=== PATIENT | male | born 1945 | race Caucasian/White ===

== ENCOUNTER → 2017-01-11 | Outpatient (CLI) | payer MEDICARE, OTHER ==
[~2017-01-11] MED LIST: ALIS300T PO; AMLO1TAB95 PO; ASCO500T2 PO; ASPI-482 PO; BUPIVACAINE MPF 0.25% 10 ML VIAL. ONE; CRESTOR5 MG PO; FLUT1DIS5 IH; IOHEXOL 180 MG/ML 10 ML VIAL. ONE; METF10002 PO; MULT-658 PO; OMEG1CAP6 PO; PREG75CA PO; SITA50TA PO; methylPREDNISolone ACETATE 80 MG/ML VIAL. ONE
--- NOTE | 2017-01-12 02:36 | PAIN ---
DATE OF SERVICE: 01/11/2017 PROGRESS NOTE FOR PAIN CLINIC DIAGNOSES: 1. Lumbar radiculopathy with lumbar spinal stenosis and post-lumbar laminectomy syndrome. 2. Right hip joint pain with primary osteoarthritis, right hip joint. HISTORY OF PRESENT ILLNESS: The patient is a 71-year-old male who returns for followup status post caudal epidural steroid injection x 1 in 07/2016. The patient did very well with this, approximately 65% improvement with the injection. Initially, he had about 80% improvement. It has become a little more noticeable, but his main complaint is right hip, which has significant pain. He has had workup with his orthopedist showing some significant right hip degenerative joint disease in his right hip and he has had his left hip replaced. His physician is recommending that he have the right one replaced as well, but he is wanting to try some more conservative measures first. He has significant pain that he reports with walking, standing, putting any weight on the leg at all, especially stepping up on a stair or curb with all of his weight on his right foot and leg with a 9 on a scale of 10, otherwise, it is about a 5 on a scale 10. Again, the patient's low back is doing much better. He has some aching in the mid back, but it is very tolerable. The patient reports the pain in his hip is aching, sharp, tingling, constant, unbearable at times, worse as the day goes on, worse with activity, better with sitting and resting and does not awaken him from sleep at night, it is much better when lying down. The patient reports some radiation into his groin as well as the anterior thigh on the right side as well as lateral thigh on the right. PHYSICAL EXAMINATION: VITAL SIGNS: Today, the patient's blood pressure is 143/91, pulse is 79, respirations 18, temperature 98.1 degrees Fahrenheit. Height is 5 feet 3 inches. Weight is 195 pounds. GENERAL: The patient is awake, alert, oriented, appropriate, very pleasant demeanor. HEENT: Shows normocephalic, atraumatic. Extraocular movements are intact and symmetrical. Oral cavity: Mucous membranes are moist and pink. Dentition is intact. NECK: Shows anterior throat is supple without palpable lymphadenopathy noted. Swallow reflex is symmetrical. CHEST: Shows normal on inspection. Breath sounds are clear to auscultation bilaterally. HEART: Shows S1 and S2 clear. ABDOMEN: Obese, soft, nontender, nondistended. No palpable organomegaly. No rebound or guarding demonstrated. BACK: Shows spine grossly in the midline. Slight exaggeration of thoracic kyphosis and mild flattening of lumbar lordotic curvature. The patient's well-healed surgical scar is again appreciated in the lumbar distribution. The patient's lower extremities showed deep tendon reflexes of 1+ in the patellar and tendo calcaneus tendons are equal. Motor exam is strong with 5/5 dorsiflexion, extension, quadriceps and hamstring flexion. The patient shows some significant tenderness with external rotation of the right hip and posterior displacement with positive Tex's sign with groin pain reproduced and into the medial thigh as well. This is relieved with the abduction of the hip and left side is negative. PLAN: Options were discussed with the patient and the patient's old chart was reviewed and his current medication regimen updated. Current review of systems updated today as well. We will proceed with a right intra-articular hip joint injection with fluoroscopic guidance. Risks were discussed including but not limited to bleeding, infection, possibility of epidural hematoma, subsequent neurologic compromise, dural puncture, headaches, spinal cord and/or nerve damage, spread of local anesthetic and numbness as well as poor results regarding pain control and side effects of steroid medication and exposure to fluoroscopy. The patient understands and wishes to proceed. The patient will return to the clinic in approximately 2 weeks for followup. He was counseled on return appointment, activity level and side effects to be aware of. DIAGNOSES: Primary osteoarthritis, right hip joint with right hip pain. PROCEDURE: Right intra-articular hip joint injection using fluoroscopic guidance under sterile prep and drape using local anesthetic. MEDICATIONS INJECTED: An 80 mg of Depo-Medrol plus 3 mL of 0.25% bupivacaine and 3 mL of Isovue for contrast. CONDITION AT DISCHARGE: Stable. The patient tolerated procedure well, had no complications. SEDRICK CHANEY MD DR: GALINA/claudine JOB#: [id number] / [id number]
== END | disposition home or self-care (01) ==
LOC: PNCL 08:35
PROVIDERS: ATTEND Anesthesiology
DX: M16.11 Unilateral primary osteoarthritis, right hip (principal); M48.06 Spinal stenosis, lumbar region; M54.16 Radiculopathy, lumbar region
CPT/HCPCS: 20610; 77002; J1040; J3490

== ENCOUNTER → 2017-07-06 | Outpatient (CLI) | payer MEDICARE, OTHER ==
[~2017-07-06] MED LIST changes: -BUPIVACAINE MPF 0.25% 10 ML VIAL. ONE; -IOHEXOL 180 MG/ML 10 ML VIAL. ONE; +METF-620 PO; -METF10002 PO; -methylPREDNISolone ACETATE 80 MG/ML VIAL. ONE
--- NOTE | 2017-07-06 16:46 | KCIC ---
MR of the right wrist Indication: Pain and swelling after a fall in April 2017. Technique: Standard multiplanar sequences are obtained. Findings: Moderate motion degradation. Triangular fibrocartilage: Degenerative signal throughout. There appears to be some partial tearing at the foveal and ulnar styloid attachment. Negative ulnar variance. Extensor carpi ulnaris tendon: Medial subluxation. No evidence of tear. Other extensor compartments: Intact Flexor tendons: Intact Median nerve: Unremarkable Scapholunate ligament: Poorly visualized due to the motion. No obvious rupture but difficult to exclude a tear. Lunotriquetral ligament: No evidence of a tear. Fluid: No significant effusion. Joints: Generalized primary osteoarthritis. Bones: Intraosseous cyst at the distal ulna. No aggressive bone destruction. No acute fracture. Soft tissues: Unremarkable There is some dorsal tilt of the lunate bone. Impression: 1. Primary osteoarthritis. 2. 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 Medial subluxation of the extensor carpi ulnaris tendon. Electronically signed by: Kyle Berumen MD (07/06/2017 4:42 PM) [facility]
== END | disposition home or self-care (01) ==
LOC: KCIC MRI 13:22
PROVIDERS: ATTEND Physician Assistant Medical
DX: S63.001A Unspecified subluxation of right wrist and hand, initial encounter (principal); M19.031 Primary osteoarthritis, right wrist; X58.XXXA Exposure to other specified factors, initial encounter; Y93.89 Activity, other specified; Y92.89 Other specified places as the place of occurrence of the external cause; Y99.8 Other external cause status
CPT/HCPCS: 73221

== ENCOUNTER → 2018-06-15 | Outpatient (CLI) | payer MEDICARE, OTHER ==
[~2018-06-15] MED LIST changes: +AMLO1TAB97 PO; +CHOL10003 PO; +HYDR12.53 PO; +HYDR26CR TP; +IOHEXOL 180 MG/ML 10 ML VIAL. ONE; +LIDOCAINE 2% PF 2ML VIAL. ONE; +LORA10TA3 PO; -METF-620 PO; +METF10007 PO; +PANT20TA2 PO; +SITA100T PO; +methylPREDNISolone ACETATE 40 MG/ML VIAL. ONE; +methylPREDNISolone ACETATE 80 MG/ML VIAL. ONE
--- NOTE | 2018-06-15 12:36 | PAIN ---
DATE OF SERVICE: 06/15/2018 PROGRESS NOTE FOR PAIN CLINIC DIAGNOSES: Lumbar radiculopathy with lumbar spinal stenosis and post-lumbar laminectomy syndrome. HISTORY OF PRESENT ILLNESS: The patient is a 73-year-old male who returns for followup status post previous caudal epidural steroid injections, last seen in 2017. The patient did very well with this about an 80% improvement initially in his low back pain. The patient reports the pain has been returning. He recently had a left hip replacement and after rehab, he noticed that his back was beginning to bother him more. It has been going on for about 2-3 months across the low back and the bilateral lower extremities, mostly in the posterior gluteus, posterior thighs and worse with standing and walking and much better with sitting or lying down. It does not awaken him from sleep very often. The patient reports he was increasing his activity with greater ease and comfort and once his hip was rehabbed, he noticed that the pain was becoming more noticeable in his low back. The patient reports it is 8 on a scale of 10 at its worst, 7 on average, 0 at its least and is a 7 today. The patient reports it is aching, sharp, constant, radiating into the posterior legs as noted without loss of motor function. The patient is using a walker as he has been since his hip was replaced but no loss of motor function of the lower extremities. PHYSICAL EXAMINATION: VITAL SIGNS: Today, the patient's blood pressure 145/79, pulse 80, respirations 16, temperature 98.0 degrees Fahrenheit, height is 61 inches and weight is 213 pounds. GENERAL: The patient is awake, alert, oriented, appropriate and very pleasant demeanor. The patient is accompanied by his spouse. HEENT: Head shows normocephalic and atraumatic. Extraocular movements are intact and symmetrical. Oral cavity, mucous membranes are moist and pink. Dentition is intact. NECK: Shows anterior throat supple without palpable lymphadenopathy noted. Swallow reflex symmetrical. CHEST: Shows normal on inspection. Breath sounds are clear to auscultation bilaterally. HEART: Shows S1 and S2 clear. No murmurs auscultated. ABDOMEN: Soft, nontender and nondistended. No palpable organomegaly is noted. No rebound or guarding demonstrated. BACK: Shows spine grossly in the midline. Normal appearing thoracic kyphosis and lumbar lordotic curvature. Lumbar paraspinous muscle shows symmetrical on inspection. On palpation shows some moderate tenderness but only diffusely in the low lumbar distribution with some flattening of lumbar lordotic curvature. Well healed surgical scarring is again noted. No radiation of pain and no tenderness over the sacrum or sacroiliac regions over the spinous processes. The patient has good rotational motion of the lumbar spine, both laterally greater than 10 degrees, right and left as well as extension and forward flexion without significant pain reported. EXTREMITIES: Lower extremities show deep tendon reflexes at 1+ in the patellar and tendo-calcaneus tendons. Motor exam is strong with 5/5 dorsiflexion, extension, quadriceps and hamstring flexion and equal. Peripheral pulses are 1+ posterior tibia. No peripheral edema is noted bilaterally. Straight leg raise are negative bilaterally as well as Gaenslen's and Tex's maneuvers. The patient has a well-healed surgical scar in the lateral aspect of the left thigh as well. Options were discussed with the patient. The patient's old chart was reviewed as well as his current medication regimen updated. Current review of systems updated today as well. We will proceed with a caudal approach epidural steroid injection today with fluoroscopic guidance. Risks were again discussed including, but not limited to bleeding, infection, possibility of epidural hematoma, subsequent neurologic compromise, dural puncture, headaches, spinal cord and/or nerve damage, side effects of steroid medication and poor results regarding pain control. The patient understands and wished to proceed. The patient will return to the clinic in approximately 2 weeks for followup, was counseled as to return appointment, activity level and side effects to be aware of. DIAGNOSIS: Lumbar radiculopathy with lumbar spinal stenosis and post-lumbar laminectomy syndrome. PROCEDURE: Caudal approach epidural steroid injection with fluoroscopic guidance under sterile prep and drape using local anesthetic. MEDICATION INJECTED: A total of 120 mg Depo-Medrol plus 10 mL of preservative-free normal saline and 2 mL of Isovue for contrast. CONDITION AT DISCHARGE: Stable. The patient tolerated the procedure well and had no complications. SEDRICK CHANEY MD DR: GALINA/claudine JOB#: [id number] / [id number]
== END | disposition home or self-care (01) ==
LOC: PNCL 09:02
PROVIDERS: ATTEND Anesthesiology
DX: M48.061 Spinal stenosis, lumbar region without neurogenic claudication (principal); M54.16 Radiculopathy, lumbar region; M96.1 Postlaminectomy syndrome, not elsewhere classified
CPT/HCPCS: 62323; J1030; J1040; J2001; Q9965

== ENCOUNTER → 2018-06-29 | Outpatient (CLI) | payer MEDICARE, OTHER ==
[~2018-06-29] MED LIST changes: -IOHEXOL 180 MG/ML 10 ML VIAL. ONE; -LIDOCAINE 2% PF 2ML VIAL. ONE; -methylPREDNISolone ACETATE 40 MG/ML VIAL. ONE; -methylPREDNISolone ACETATE 80 MG/ML VIAL. ONE
--- NOTE | 2018-06-29 18:35 | PAIN ---
DATE OF SERVICE: 06/29/2018 DIAGNOSES: Lumbar radiculopathy with lumbar spinal stenosis, post-lumbar laminectomy syndrome. HISTORY OF PRESENT ILLNESS: The patient is a 73-year-old male, returns for followup status post caudal epidural steroid injection x 1. The patient reports 100% improvement. The patient has no pain in his low back or his leg. The patient reports he is still working through physical therapy, has a recent right hip joint replacement, but is doing well with this and feels that is progressing. The patient reports his leg is getting stronger. The patient reports his pain is completely gone, is a 0 in all categories, 0 at its worst, 0 average, 0 at its least, and 0 on a scale of 10 today. The patient reports no new motor or sensory deficits. No new bowel or bladder incontinence or other complaints. He is very pleased with his progress, sleeping well at night, increasing his activity, is moving about, getting around better, walking greater distances, doing household activities with greater ease and comfort and again sleeping well. PHYSICAL EXAMINATION: VITAL SIGNS: The patient's blood pressure 126/82, pulse 81, respirations 16, temperature is 98.2 degrees Fahrenheit, 61 inches, weight is 207 pounds. GENERAL: The patient is awake, alert, oriented, appropriate, very pleasant demeanor. HEENT: Shows normocephalic, atraumatic. Extraocular movements are intact and symmetrical. Oral cavity: Mucous membranes moist and pink. Dentition is intact. NECK: Shows anterior throat supple without palpable lymphadenopathy noted. Swallow reflex is symmetrical. CHEST: Shows normal on inspection. Breath sounds clear to auscultation bilaterally. HEART: Shows S1, S2 clear. No murmurs auscultated. ABDOMEN: Obese, soft, nontender, nondistended. No palpable organomegaly is noted. No rebound or guarding demonstrated. BACK: Shows spine grossly in the midline. Normal appearing thoracic kyphosis, slightly increased, and some flattening of lumbar lordotic curvature with well-healed surgical scar noted. Lumbar paraspinous muscle shows symmetrical on inspection, some very mild tenderness in the middle and lower distribution of paraspinous muscles, but without radiation. The patient has good rotational motion of lumbar spine without difficulty. EXTREMITIES: Lower extremities show deep tendon reflexes at 1+ in the patellar and tendo calcaneus tendons. Motor exam is strong with 5/5 dorsiflexion and extension. Peripheral pulses are 1+ posterior tibia. No peripheral edema is noted bilaterally. Options were discussed with the patient. The patient's old chart was reviewed as is his current medication regimen updated. Current review of systems is updated today as well. We will proceed with holding any further injections at this time as the patient is doing quite well. He is to increase activity as tolerated and maintain his physical therapy with his right hip. The patient will follow up at this time on as needed basis. SEDRICK CHANEY MD DR: GALINA/claudine JOB#: [id number] / [id number]
== END | disposition home or self-care (01) ==
LOC: PNCL 08:13
PROVIDERS: ATTEND Anesthesiology
DX: M48.061 Spinal stenosis, lumbar region without neurogenic claudication (principal); M54.16 Radiculopathy, lumbar region; M96.1 Postlaminectomy syndrome, not elsewhere classified; Z96.641 Presence of right artificial hip joint
CPT/HCPCS: G0463

== ENCOUNTER → 2019-03-08 | Outpatient (CLI) | payer MEDICARE, OTHER ==
[~2019-03-08] MED LIST changes: +HYDR-2145 PO; -HYDR12.53 PO; +HYDR12.575 PO; +IOHEXOL 180 MG/ML 10 ML VIAL. ONE; +methylPREDNISolone ACETATE 40 MG/ML VIAL. ONE; +methylPREDNISolone ACETATE 80 MG/ML VIAL. ONE
--- NOTE | 2019-03-08 11:23 | PAIN ---
DATE OF SERVICE: 03/08/2019 PROGRESS NOTE FOR PAIN CLINIC DIAGNOSES: Lumbar radiculopathy with lumbar spinal stenosis and lumbar post-laminectomy syndrome. HISTORY OF PRESENT ILLNESS: The patient is a 73-year-old male who returns for followup status post caudal epidural steroid injection x 1 on . The patient did very well with 100% improved for about 6 months. The patient reports pains are returning now over the past few weeks, increasing his walking or standing in the low back and radiating to bilateral posterior gluteus, posterior thighs, posterior calves mostly across the low back. The patient reports it is an 8 on a scale of 10 at its worst over the past week, 5 on average and 3 at its least and is a 5 today. The patient reports it is sharp and aching, sometimes dull, stabbing but becoming more constant, more radiating, worse with walking, standing, changing position initially with increased his walking greater distances, household activities performed with much greater ease and comfort and sleeping well, still sleeps well, does not awaken him from sleep and traveling with much greater ease and comfort as well until the last month or so. The patient reports no new motor or sensory deficits and no new bowel or bladder incontinence or other complaints. The patient is using a walker to ambulate now as he feels somewhat unstable as the pain is returning. PHYSICAL EXAMINATION: VITAL SIGNS: The patient's blood pressure 126/75, pulse 73, respirations 16 and temperature 98.1 degrees Fahrenheit. Height 6 feet 1 inch and weight is 213 pounds. GENERAL: The patient is awake, alert, oriented, appropriate and very pleasant demeanor. HEENT: Head shows normocephalic and atraumatic. Extraocular movements intact and symmetrical. Oral cavity: Mucous membranes are moist and pink. Dentition is intact. NECK: Shows anterior throat supple without palpable lymphadenopathy noted. Swallow reflex symmetrical. CHEST: Shows normal on inspection. Breath sounds are clear to auscultation bilaterally. HEART: Shows S1 and S2 clear. No murmurs auscultated. ABDOMEN: Obese, soft, nontender and nondistended. No palpable organomegaly is noted. No rebound or guarding demonstrated. BACK: Shows spine grossly in the midline. Normal appearing thoracic kyphosis and lumbar lordotic curvature. Lumbar paraspinous muscle shows symmetrical on inspection. On palpation shows some moderate tenderness diffusely but only diffusely without radiation. EXTREMITIES: The patient's lower extremities show deep tendon reflexes at 1+ in the patellar and tendo-calcaneus tendons are equal. Motor exam is strong with 5/5 dorsiflexion, extension, quadriceps and hamstring flexion symmetrical. Peripheral pulses are 1+. No peripheral edema is noted bilaterally. Options were discussed with the patient. The patient's old chart was reviewed as well as his current medication regimen updated. Current review of systems is updated today as well. We will proceed with a caudal epidural steroid injection today with fluoroscopic guidance. Risks were again discussed including, but not limited to bleeding, infection, possibility of epidural hematoma, subsequent neurologic compromise, dural puncture, headaches, spinal cord and/or nerve damage, side effects of steroid medication and poor results regarding pain control. The patient understands and wished to proceed. The patient will return to the clinic in approximately 2 weeks for followup, was counseled as to return appointment, activity level and side effects to be aware of. DIAGNOSIS: Lumbar radiculopathy with lumbar spinal stenosis with lumbar post-laminectomy syndrome. PROCEDURE: Lumbar epidural steroid injection, caudal approach using C-arm fluoroscopic guidance under sterile prep and drape using local anesthetic. MEDICATION INJECTED: A total of 120 mg Depo-Medrol plus 10 mL of preservative-free normal saline and 2 mL of contrast. CONDITION AT DISCHARGE: Stable. The patient tolerated the procedure well and had no complications. SEDRICK CHANEY MD DR: GALINA/claudine JOB#: [id number] / [id number]
== END ==
LOC: PNCL 08:06
PROVIDERS: ATTEND Anesthesiology
DX: M54.16 Radiculopathy, lumbar region (principal); M48.061 Spinal stenosis, lumbar region without neurogenic claudication; M96.1 Postlaminectomy syndrome, not elsewhere classified
CPT/HCPCS: 62323; J1030; J1040; Q9965

== ENCOUNTER → 2019-03-26 | Outpatient (CLI) | payer MEDICARE, OTHER ==
[~2019-03-26] MED LIST changes: -IOHEXOL 180 MG/ML 10 ML VIAL. ONE; -methylPREDNISolone ACETATE 40 MG/ML VIAL. ONE; -methylPREDNISolone ACETATE 80 MG/ML VIAL. ONE
--- NOTE | 2019-03-26 11:15 | PAIN ---
DATE OF SERVICE: 03/26/2019 PROGRESS NOTE FOR PAIN CLINIC DIAGNOSES: Lumbar radiculopathy with lumbar spinal stenosis and lumbar post-laminectomy syndrome. HISTORY OF PRESENT ILLNESS: The patient is a 73-year-old male who returns for followup status post caudal epidural steroid injection x 1 on 03/08/2019. The patient did very well, reports about 100% improvement at this time in his low back, but he is still off balance a bit when he is walking, but his pain has completely gone. The patient reports a 0 on a scale of 10 in all categories, worst, average and at its least over the past week and is feeling quite a bit better. The patient reports he has been increasing his activity with greater ease and comfort, walking better with less pain and able to do household activities, driving with greater ease and comfort as well. The patient reports no new motor or sensory deficits, no new bowel or bladder incontinence. The patient is still using his walker as he is off balance but otherwise no pain. The patient reports no new changes or other complaints. PHYSICAL EXAMINATION: VITAL SIGNS: The patient's blood pressure is 148/81, pulse is 74, respirations 18, temperature 98.2 degrees Fahrenheit, height 61 inches, weight is 211 pounds. GENERAL: The patient is awake, alert, oriented, appropriate, very pleasant demeanor. HEENT: Head shows normocephalic, atraumatic. Extraocular movements are intact and symmetrical. Oral cavity: Mucous membranes are moist and pink. Dentition is intact. NECK: Shows anterior throat supple without palpable lymphadenopathy noted. Swallow reflex symmetrical. CHEST: Shows normal with inspection. Breath sounds are clear to auscultation bilaterally. HEART: Shows S1, S2 clear. No murmurs auscultated. ABDOMEN: Obese, soft, nontender, nondistended. No palpable organomegaly is noted. BACK: Shows spine grossly in the midline. Slight exaggeration of thoracic kyphosis, some minor flattening of lumbar lordotic curvature. Well-healed surgical scar noted in the lumbar distribution. Lumbar paraspinous muscle shows symmetrical on inspection, on palpation shows some moderate tenderness diffusely, but only diffusely bilaterally without specific radiation. The patient has good rotational motion as well as extension and flexion. EXTREMITIES: Lower extremities show deep tendon reflexes 1+ in the patellar tendons and tendo-calcaneus tendons. Motor exam is strong with 5/5 dorsiflexion, extension, quadriceps and hamstring flexion symmetrical. Peripheral pulses are 1+ posterior tibial. No peripheral edema is noted bilaterally. ASSESSMENT AND PLAN: Options were discussed with the patient. The patient's old chart was reviewed as his current medication regimen and updated and current review of systems updated today as well. We will hold on any further injections as the patient is doing quite a bit better. The patient was encouraged to increase his activity and would maintain use of his walker when he feels he is off balance. The patient will follow up at this time on an as needed basis. SEDRICK CHANEY MD DR: GALINA/claudine JOB#: [id number] / [id number]
== END | disposition home or self-care (01) ==
LOC: PNCL 09:02
PROVIDERS: ATTEND Anesthesiology
DX: M48.061 Spinal stenosis, lumbar region without neurogenic claudication (principal); M54.16 Radiculopathy, lumbar region; M96.1 Postlaminectomy syndrome, not elsewhere classified
CPT/HCPCS: G0463

== ENCOUNTER → 2021-06-24 | Outpatient (CLI) | payer MEDICARE, OTHER ==
[~2021-06-24] MED LIST changes: -ASCO500T2 PO; +ASCO500T4 PO; -HYDR26CR TP; +HYDR26CR2 TP; +PREG-9 PO; -PREG75CA PO
--- NOTE | 2021-06-24 16:11 | KCIC ---
Examination: MRI lumbar spine without IV contrast. History: Low back pain frequent falls from back and leg pain. Technique: Multiplanar, multi sequential MR imaging was performed of the lumbar spine. Comparison: None Findings: Chronic appearing mild central compression deformity of L4 and L5 vertebral bodies. Normal vertebral body alignment. No fracture. Schmorl's nodes in the superior endplate of L3 vertebral body. Conus ter minates at the normal location. No evidence of nerve root clumping. 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 Specific level as follow: T11-T12: Mild diffuse disc bulge with ligamentum flavum hypertrophy and facet arthropathy. Mild canal stenosis. Moderate bilateral neuroforaminal narrowing. T12-L1: Diffuse disc bulge with bilateral facet arthropathy and ligamentum flavum hypertrophy, causin g mild to moderate canal stenosis and bilateral neuroforaminal narrowing. L1-L2: Diffuse disc bulge with bilateral facet arthropathy and ligamentum flavum hypertrophy, causing moderate canal stenosis with moderate to severe left neuroforaminal narrowing. L2-L3: Diffuse disc bulge with bilateral facet arthropathy and ligamentum flavum hypertrophy, causing significant canal stenosis with severe bilateral lateral recess narrowing which encroaching transiti ng nerve roots. Severe left and moderate right neuroforaminal narrowing, encroaching bilateral exitin g nerve roots. L3-4: Diffuse disc bulge with bilateral facet arthropathy and ligamentum flavum thickening, causing s evere canal stenosis with moderate bilateral neuroforaminal narrowing, abutting exiting nerve roots. L4-5: Diffuse disc bulge with bilateral facet arthropathy, causing moderate canal stenosis with moder ate to severe bilateral neuroforaminal narrowing. L5-S1: Mild diffuse disc bulge with bilateral facet arthropathy, causing [id number] bilateral n euroforaminal narrowing. No significant canal stenosis. IMPRESSION: Severe multilevel degenerative changes as described above, worst at L2-3 and L3-4 with severe canal s tenosis and significant bilateral neuroforaminal narrowing. Electronically signed by: Jennifer Troy MD (06/24/2021 4:09 PM) [facility]
== END ==
LOC: KCIC MRI 12:53
PROVIDERS: ATTEND Physician Assistant Medical
DX: M47.816 Spondylosis without myelopathy or radiculopathy, lumbar region (principal); M48.061 Spinal stenosis, lumbar region without neurogenic claudication
CPT/HCPCS: 72148

== ENCOUNTER → 2021-07-17 | Outpatient (CLI) | payer MEDICARE, OTHER ==
[~2021-07-17] MED LIST changes: +IOHEXOL 180 MG/ML 10 ML VIAL. ONE; +methylPREDNISolone ACETATE 40 MG/ML VIAL. ONE; +methylPREDNISolone ACETATE 80 MG/ML VIAL. ONE
--- NOTE | 2021-07-17 11:56 | PDOC ---
Progress Note - Pain Clinic Date of Service: DOS: DATE: 07/17/21 TIME: 11:53 Diagnosis: Dx: Lumbar radiculopathy with lumbar spinal stenosis lumbar postlaminectomy syndrome Right hip joint pain with osteoarthritis History or Present Illness: HPI: 76-year-old male presents with history of pain low back and bilateral lower extremities posterior gluteus posterior thighs posterior calves mostly in the low back itself patient reports is an 8 on scale 10 is worse over the past week 5 hours previously and is a 3 today. Patient did very well was last seen March 2019 after caudal approach epidural steroid injection with a Cameron percent improvement for about 6 months or more patient reports he has been putting off getting back and he did have a new MRI scan which we discussed with him today showing severe multilevel degenerative changes worst at L2-3 L3-4 with severe canal stenosis and subsequent bilateral neuroforaminal narrowing. Patient reports still significant pain the low back and legs worse with walking standing better with sitting or laying down generally does not awaken her from sleep at night patient reports that previously he is done very well with after his last injection with distance walking household activities work activities travel with greater ease and comfort but now is becoming much more difficult to perform his daily activities. Patient reports no loss of motor function but significant pa in in the lower extremities and some weakness and fatigue in the lower extremities with ambulation. Patient reports no loss of bowel or bladder continence. Physical Exam: VS: Blood pressure is 130/83 pulse 78 temperature 98.4 F height is 5 feet 3 inches weight is 203 pounds. PE: PHYSICAL EXAMINATION: GENERAL: The patient is awake, alert, oriented, appropriate, very pleasant in demeanor HEENT: Shows normocephalic, atraumatic. Extraocular movements are intact and symmetrical. Oral cavity: Mucous membranes moist and pink. NECK: Shows anterior throat supple without palpable lymphadenopathy noted. Swallow reflex symmetrical. CHEST: Shows normal on inspection. Breath sounds are clear bilaterally, distant no rales rhonchi wheezes also. HEART: Shows S1, S2 clear. No murmurs auscultated. ABDOMEN: Soft, nontender, nondistended, obese. No palpable organomegaly is noted. BACK: Shows spine grossly in the midline. Normal-appearing cervical lordotic curvature. There is slightly thoracic kyphosis, some flattening of the lumbar lordotic curvature, with well-healed midline surgical scarring noted. Lumbar paraspinous muscles show symmetrical on inspection, on palpation shows some moderate tenderness diffusely throughout the upper, middle and lower distribution of the paraspinous muscles, but without specific trigger points, without radiation of pain. The patient has good rotational motion of the lumbar spine, both laterally as well as extension and flexion without significant difficulty. EXTREMITIES: Lower extremities show deep tendon reflexes 1+ in the patellar and tendo calcaneus tendons. Motor exam is 5 on a scale of 5 with right dorsiflexion, extension, quadriceps and hamstring flexion and 5/5 on the left. Peripheral pulses are 1+ posterior tibial. No peripheral edema is noted bilaterally. Lower extremities are warm and dry. SKIN: Shows warm and dry, good turgor. No edema. No sores, rashes or bruising throughout. Procedure: Procedure: Options were discussed with patient. Patient chart reviews his current medication regimen updated current review of systems updated today as well. We will proceed with a caudal approach epidural steroid injection today with fluoroscopic guidance. Risks were discussed including but not limited to: Bleeding, infection, possibility of epidural hematoma and subsequent neurological compromise, dural puncture, headaches, spinal cord and/or nerve damage, side effects of steroid medication, and poor results regarding pain control. Patient understands and wished to proceed. She will return to clinic in approximately 2 weeks for follow-up, was counseled return appointment, activity level, and side effect to be aware of. Medication Injected: Med Injected: Procedure is lumbar epidural steroid injection under local anesthetic using sterile prep and drape at the caudal level using C-arm fluoroscopic guidance in both AP and lateral views medications injected is 120 mg Depo-Medrol +10mL preservative-free normal saline and 2 mL contrast- condition at discharge is stable patient tolerated procedure well had no complications. Condition at Discharge: Condition at Discharge: Condition at discharge is stable, patient tolerated procedure well and had no complications. SEDRICK CHANEY MD Jul 17, 2021 11:56
--- NOTE | 2021-07-17 11:57 | PDOC4 ---
Procedure Note: ICD 10 Code: ICD 10 Code: M54.17 M51.87 M 96.1 Procedure Note: Patient was consented for caudal approach epidural steroid injection with fluoroscopic guidance. Risks were discussed including but not limited to: Bleeding, infection, possibility of epidural hematoma and subsequent neurological compromise, dural puncture, headaches, spinal cord and/or nerve damage, side effects of steroid medication, and poor results regarding pain control. Patient understands and wished to proceed. Procedure is lumbar epidural steroid injection under local anesthetic using sterile prep and drape at the caudal level using C-arm fluoroscopic guidance in both AP and lateral views medications injected is 120 mg Depo-Medrol +10mL preservative-free normal saline and 2 mL contrast- condition at discharge is stable patient tolerated procedure well had no complications. SEDRICK CHANEY MD Jul 17, 2021 11:57
== END | disposition home or self-care (01) ==
LOC: PNCL 10:46
PROVIDERS: ATTEND Anesthesiology
DX: M48.061 Spinal stenosis, lumbar region without neurogenic claudication (principal); M96.1 Postlaminectomy syndrome, not elsewhere classified; M54.16 Radiculopathy, lumbar region; M16.11 Unilateral primary osteoarthritis, right hip; Z79.82 Long term (current) use of aspirin; Z79.84 Long term (current) use of oral hypoglycemic drugs; Z79.899 Other long term (current) drug therapy; Z88.8 Allergy status to other drugs, medicaments and biological substances
CPT/HCPCS: 62323; J1030; J1040; Q9965